=== PATIENT | female | born 2000 | race Caucasian/White ===

== ENCOUNTER 2022-08-30 03:39 | Emergency (ER) | payer SELFPAY ==
[2022-08-30 03:48] VITALS: BP 120/68; PULSE 67; RESP 16; TEMP 37.1; O2SAT 98
--- NOTE | 2022-08-30 03:49 | ED.GENADULT ---
HPI - General Adult General Time Seen by Provider: 03:50 Date Seen: 08/30/22 Chief complaint: Unspecified Complaint, Adult Stated complaint: withdrawal Time Seen by Provider: 08/30/22 03:41 Source: patient and family Mode of arrival: ambulatory Limitations: no limitations History of Present Illness HPI narrative: 21-year-old female who comes in today with grandmother complaining about ?fentanyl withdrawal. ? Patient says that a friend again for pills which she said for Percocet but then might be fentanyl. She has not taken this for 3 days and for 3 days has had watery eyes, runny nose, body aches, nausea. Denies chest pain or shortness of breath, denies any other drug use. Related Data Home Medications Medication Instructions Recorded Confirmed No Known Home Medications 08/30/22 08/30/22 Allergies Allergy/AdvReac Type Severity Reaction Status Date / Time No Known Drug Allergies Allergy Verified 08/30/22 03:50 Review of Systems Status of ROS: Reports: 10 or more systems reviewed and unremarkable except as noted in History and below PFSH PFSH Social History Smoking Status: Current every day smoker Do you use any of these nicotine containing products: Vaping Products How often do you have a drink containing alcohol: never AUDIT-C Alcohol total score: 0 Non-prescribed substance use: opiods/painkillers Exam Narrative: Exam Narrative: General: Well-developed and well-nourished, no acute distress Head: Atraumatic and normocephalic Eyes: Pupils are equal reactive, extraocular motions intact, conjunctiva clear ENT: External nose and ears are normal, posterior pharynx without erythema or exudate Neck: No midline cervical tenderness, full spontaneous range of motion the neck, trachea midline, no adenopathy Heart: Regular rate and rhythm no murmurs or thrills Lungs: Clear to auscultation bilaterally without wheezes or crackles Abdomen: Soft, nontender, nondistended with active bowel sounds Musculoskeletal: No tenderness, deformity, or edema Neurologic: Awake, alert, and oriented x3, no gross focal neurologic deficits, cranial nerves intact as tested Psych: Mood and affect are appropriate Skin: No rashes Const: Vital Signs, click to edit/add: Vital Signs - 24 hr 08/30/22 03:48 Temperature 98.7 F Pulse Rate [Left P ulse Oximeter] 67 Respiratory Rate 16 Blood Pressure [Ri ght Upper Arm] 120/68 Pulse Oximetry 98 Oxygen Delivery Me thod Room Air Course Course Hospital Course: External records reviewed. Patient presents today with concern for opiate withdrawal. Says the last time she used was 3 days ago. She says she has been taking either Percocet or fentanyl has had symptoms for 3 days. On exam here, no tachycardia, no vomiting, vital is stable. She has no sneezing, no diarrhea, COWS Score 6 base predominantly on reported symptoms, no objective findings today. Patient can be discharged with antiemetics and resources for outpatient treatment. Review of the [place] prescribing database shows the patient had several prescriptions for oxycodone last spring but nothing recent. Reevaluation(s) Reevaluation #1: Urine drug screen positive for marijuana, negative for opiates and other substances. Patient will be discharged with Zofran, can take Tylenol and ibuprofen help with symptom management. Given the patient's normotensive, IM hesitant to initiate clonidine due to concern for hypotension. Time: 04:18 Vital Signs Vital signs: Initial Vital Signs Temperature 98.7 F 08/30/22 03:48 Temperature Source Temporal Artery Scan 08/30/22 03:48 Pulse Rate 67 08/30/22 03:48 Pulse Rhythm 08/30/22 03:48 Respiratory Rate 16 08/30/22 03:48 Blood Pressure 120/68 08/30/22 03:48 Blood Pressure Mean 85 08/30/22 03:48 Blood Pressure Position Sitting 08/30/22 03:48 Pulse Oximetry 98 08/30/22 03:48 Oxygen Delivery Method 08/30/22 03:48 Vital Signs Temperature 98.7 F 08/30/22 03:48 Pulse Rate 67 08/30/22 03:48 Respiratory Rate 16 08/30/22 03:48 Blood Pressure 120/68 08/30/22 03:48 Pulse Oximetry 98 08/30/22 03:48 Oxygen Delivery Method 08/30/22 03:48 Temperature 98.7 F 08/30/22 03:48 Pulse Rate 67 08/30/22 03:48 Respiratory Rate 16 08/30/22 03:48 Blood Pressure 120/68 08/30/22 03:48 Pulse Oximetry 98 08/30/22 03:48 Oxygen Delivery Method 08/30/22 03:48 Medical Decision Making Medical Records Medical records reviewed: Yes I reviewed the patient's medical records Lab Data Lab results reviewed: Yes I reviewed the patient's lab results Labs: Lab Results 08/30/22 Range/Units 03:55 Ur Drug Screen Comment See Note Discharge Plan Discharge Clinical Impression: Withdrawal from opioids Patient Disposition: Home w/ Parent or Adult Condition: Stable Instructions: Opioid Withdrawal (ED) Additional Instructions: Use Zofran as needed for nausea or vomiting. Take Tylenol or ibuprofen for body aches. Contact the [facility] Mobile Opioid Support Team in the morning for further resources Activity Level: No Restrictions Discharge Diet: Regular Prescriptions: No Action No Known Home Medications Stand Alone Forms: [employer] Info Instructions
[2022-08-30] MEDS: diazePAM 5 MG TABLET 2.5 MG PO (04:14)
[2022-08-30] MEDS: ONDANSETRON ODT 4 MG TAB PO (04:14)
[2022-08-30] MEDS: IBUPROFEN 600 MG TABLET PO (04:15)
[2022-08-30 04:16] LABS: Amphetamine Screen Urine Negative (Negative); Barbiturate Screen Urine Negative (Negative); Benzodiazepines Screen Urine Negative (Negative); Cocaine Screen Urine Negative (Negative); Methadone Screen Urine Negative (Negative); Methamphetamines Screen Urine Negative (Negative); Opiate Screen Urine Negative (Negative); Oxycodone Screen Urine Negative (Negative); Phencyclidine Screen Urine Negative (Negative); Tricyclic Antidepressant Urine Negative (Negative)
[2022-08-30 04:17] LABS: Cannabinoid Screen Urine POSITIVE (Negative)
== END 2022-08-30 04:32 | disposition home or self-care (01) ==
PROVIDERS: Emergency Provider Family Medicine
DX: F11.23 Opioid dependence with withdrawal (principal)
CPT/HCPCS: 80306; 99283; A9270